=== PATIENT | male | born 1960 | race American Indian/Alaskan Native ===

== ENCOUNTER 2021-09-20 15:49 | Inpatient (IN) | payer OTHER ==
--- NOTE | 2021-09-20 16:57 | XRay Report ---
CHEST 1 VIEW INDICATION: Dyspnea. COMPARISON: None FINDINGS: SUPPORT DEVICES: None. HEART: Within normal limits. LUNGS/PLEURA: No acute air space or interstitial disease. ADDITIONAL FINDINGS: None. IMPRESSION: 1. No acute findings. Signer Name: Celso Mendenhall MD Signed: 09/20/2021 4:52 PM Workstation Name: [id number]
[2021-09-20 17:03] LABS: Hematocrit 47.8 % (35.5-45.6); Hemoglobin 16.1 gm/dl (11.8-15.2); Mean Corpuscular HGB Conc 34 % (32-34); Mean Corpuscular Volume 78 fl (84-94); Red Blood Count 6.09 M/mm3 (3.65-5.03); Red Cell Distribution Width 14.8 % (13.2-15.2)
[2021-09-20 17:10] LABS: Platelet Count 10 K/mm3 (140-440)
[2021-09-20 17:21] LABS: Alanine Aminotransferase 25 units/L (7-56); BUN/Creatinine Ratio 15; Blood Urea Nitrogen 20 mg/dL (9-20); Calcium 9.5 mg/dL (8.4-10.2); Hemolysis Index 12
[2021-09-20 18:13] LABS: Anisocytosis RARE; Basophils % (Manual) 0 % (0.0-1.8); Eosinophils % (Manual) 0 % (0.0-4.3); Total Cells Counted 100
[2021-09-20 18:14] LABS: Spherocytes Rare
--- NOTE | 2021-09-20 19:58 | Cat Scan Report ---
CTA CHEST WITH CONTRAST INDICATION / CLINICAL INFORMATION: Tachycardia elevated D-dimer. TECHNIQUE: Axial CT images were obtained through the chest after injection of IV contrast. 3 plane NJ P and/or 3D reconstructions were produced. All CT scans at this location are performed using CT dose reduction for ALARA by means of automated exposure control. COMPARISON: None available. FINDINGS: PULMONARY ARTERIES: No pulmonary emboli. THORACIC AORTA: No significant abnormality. HEART: No significant abnormality. CORONARY ARTERY CALCIFICATION: None. MEDIASTINUM / KIMBER: Diffuse goiter. 3.3 cm nodule upper pole right thyroid is partially imaged. PLEURA: No pleural effusion. No pneumothorax. LUNGS: No acute air space or interstitial disease. ADDITIONAL FINDINGS: None. UPPER ABDOMEN: 1.7 cm left adrenal nodule. SKELETAL STRUCTURES: No significant osseous abnormality. IMPRESSION: 1. No CT evidence for pulmonary embolism. 2. Negative for pneumonia. 3. Diffuse goiter with 3.2 cm right thyroid nodule. Incidental thyroid nodule in the right lobe measuring 3.2 cm in a patient equal to or over age 35. Re commendation based on ACR guidelines: Diagnostic thyroid ultrasound. Signer Name: Matthias Nash MD Signed: 09/20/2021 7:53 PM Workstation Name: [id number]
[2021-09-20] MEDS ORDERED: SODIUM CHLORIDE 0.9% 1000 ML 1,000 ML IV ONE (20:30)
--- NOTE | 2021-09-20 20:32 | Emergency Department Report ---
ED General Adult HPI - General Chief complaint: Dyspnea/Respdistress Stated complaint: TACHYCARDIA,ESME Time Seen by Provider: 09/20/21 16:27 Source: patient, EMS Mode of arrival: Stretcher Limitations: No Limitations - History of Present Illness Initial comments: Patient is a 62-year-old male presenting to ED with complaint of chills and tachycardia. Patient states that he was on his way home from a prostate biopsy that was done today. He denies any shortness of breath or cough. Reports continued hematuria since the procedure. Patient febrile and tachycardic in triage. Severity scale (0 -10): 0 ED Review of Systems ROS: Stated complaint: TACHYCARDIA,ESME Other details as noted in HPI Comment: All other systems reviewed and negative Constitutional: chills, fever Respiratory: denies: cough, shortness of breath, wheezing Cardiovascular: palpitations. denies: chest pain Endocrine: no symptoms reported Gastrointestinal: denies: abdominal pain, nausea, diarrhea Genitourinary: denies: urgency, dysuria Musculoskeletal: denies: back pain, joint swelling, arthralgia Skin: denies: rash, lesions Neurological: denies: headache, weakness, paresthesias Psychiatric: denies: anxiety, depression ED Past Medical Hx - Past Medical History Previous Medical History?: Yes Hx of Cancer: Yes - Social History Smoking Status: Never Smoker Substance Use Type: None ED Physical Exam - General Limitations: No Limitations General appearance: alert, in no apparent distress - Head Head exam: Present: atraumatic, normocephalic - Respiratory Respiratory exam: Present: normal lung sounds bilaterally. Absent: respiratory distress - Cardiovascular Cardiovascular Exam: Present: regular rate, tachycardia, normal heart sounds - GI/Abdominal GI/Abdominal exam: Present: soft. Absent: distended, tenderness - Rectal Rectal exam: Present: deferred - Neurological Exam Neurological exam: Present: alert, oriented X3 - Psychiatric Psychiatric exam: Present: normal affect, normal mood - Skin Skin exam: Present: warm, dry, intact, normal color ED Course Vital Signs 09/20/21 09/20/21 09/20/21 16:02 16:29 16:30 Temperature 100.3 F H Pulse Rate 135 H 123 H 126 H Respiratory 18 35 H 29 H Rate Blood Pressure Blood Pressure 133/77 [Left] O2 Sat by Pulse 100 96 96 Oximetry 09/20/21 09/20/21 09/20/21 16:46 16:56 17:00 Temperature Pulse Rate 113 H 114 H Respiratory 22 16 Rate Blood Pressure 105/61 Blood Pressure [Left] O2 Sat by Pulse 97 99 96 Oximetry 09/20/21 09/20/21 09/20/21 17:16 17:30 17:46 Temperature Pulse Rate 108 H 111 H 135 H Respiratory 14 34 H 27 H Rate Blood Pressure 105/61 105/61 105/61 Blood Pressure [Left] O2 Sat by Pulse 96 96 96 Oximetry 09/20/21 09/20/21 09/20/21 18:00 18:16 18:30 Temperature Pulse Rate 119 H 107 H 104 H Respiratory 30 H 24 19 Rate Blood Pressure 105/61 105/61 113/62 Blood Pressure [Left] O2 Sat by Pulse 95 96 Oximetry 09/20/21 09/20/21 18:46 19:00 Temperature Pulse Rate 99 H 101 H Respiratory 16 21 Rate Blood Pressure 113/62 113/71 Blood Pressure [Left] O2 Sat by Pulse 97 97 Oximetry ED Medical Decision Making - Lab Data Result diagrams: 09/20/21 16:39 09/20/21 16:39 - Medical Decision Making Patient presenting to ED with complaint of chills and tachycardia status post prostate biopsy earlier today. On arrival he is tachycardic in the 130s with low-grade fever. Labs obtained and reveal leukocytosis of 18.6. Thrombocytopenia platelets of 10,000. Lactic acid is within normal range. D- dimer 1111. CTA negative for PE. Currently unable to obtain urine sample. Will avoid straight cath due to recent procedure. Given timeline acute prostatitis is unlikely however will start on Zosyn. COVID swab pending. Will admit to hospitalist. Critical care attestation.: If time is entered above; I have spent that time in minutes in the direct care of this critically ill patient, excluding procedure time. ED Disposition Clinical Impression: SIRS (systemic inflammatory response syndrome), Postoperative fever, Thrombocytopenia Disposition: ADMITTED INPATIENT Is pt being admited?: Yes Condition: Stable
[2021-09-20] MEDS ORDERED: ONDANSETRON 4 MG/2 ML INJ IV PRN (21:27)
[2021-09-20] MEDS ORDERED: MORPHINE 4 MG/1 ML INJ IV PRN (21:27)
[2021-09-20] MEDS ORDERED: ACETAMINOPHEN 325 MG TAB PO PRN (21:27)
[2021-09-20] MEDS ORDERED: ALBUTEROL 2.5 MG/3 ML NEBU IH PRN (21:27)
[2021-09-20] MEDS ORDERED: MORPHINE 2 MG/1 ML INJ IV PRN (21:27)
[2021-09-20] MEDS ORDERED: ACETAMINOPHEN 325 MG/10.15 ML ORAL LIQD UNIT DOSE PO ONE (21:30)
--- NOTE | 2021-09-20 21:34 | History and Physical Report ---
History of Present Illness Date of examination: 09/20/21 Date of admission: 09/20/21 Chief complaint: Chills Tachycardia History of present illness: 62-year-old male with past medical history of hypertension, cancer was brought to the emergency room because of chills and tachycardia. Patient states that he was on his way home from a prostate biopsy that was done today. He denies any shortness of breath or cough. Reports continued hematuria since the procedure. Patient febrile and tachycardic in triage. On arrival he is tachycardic in the 130s with low-grade fever. Labs obtained and reveal leukocytosis of 18.6. Thrombocytopenia platelets of 10,000. Lactic acid is within normal range. D-dimer 1111. CTA negative for PE. Currently unable to obtain urine sample. Will avoid straight cath due to recent procedure. Given timeline acute prostatitis is unlikely however will start on Zosyn. COVID swab pending. Past History Past Medical History: hypertension, other (Cancer) Past Surgical History: Other (Prostate biopsy) Social history: no significant social history Family history: hypertension Medications and Allergies Allergies Allergy/AdvReac Type Severity Reaction Status Date / Time No Known Allergies Allergy Unverified 09/20/21 21:22 Active Meds: Active Medications Acetaminophen (Acetaminophen 325 Mg/10.15 Ml Oral Liqd Unit Dose) 650 mg PO ONCE ONE Stop: 09/20/21 20:31 Acetaminophen (Acetaminophen 325 Mg Tab) 650 mg PO Q4H PRN PRN Reason: Pain MILD(1-3)/Fever >100.5/TALBOT Albuterol (Albuterol 2.5 Mg/3 Ml Nebu) 2.5 mg IH Q3HRT PRN PRN Reason: Shortness Of Breath Albuterol/Ipratropium (Ipratropium/Albuterol Sulfate 3 Ml Ampul.Neb) 1 ampul IH Q6HRT CATHLEEN Famotidine (Famotidine 20 Mg Tab) 20 mg PO BID CATHLEEN Sodium Chloride (Nacl 0.9% 1000 Ml) 1,000 mls @ 999 mls/hr IV BOLUS ONE Stop: 09/20/21 21:30 Piperacillin Sod/Tazobactam Sod (Zosyn/Ns 3.375gm/50ml) 3.375 gm in 50 mls @ 100 mls/hr IV ONCE ONE; Protocol Stop: 09/20/21 20:59 Sodium Chloride (Nacl 0.9% 1000 Ml) 1,000 mls @ 100 mls/hr IV DIRECT CATHLEEN Piperacillin Sod/Tazobactam Sod (Zosyn/Ns 4.5gm/100ml) 4.5 gm in 100 mls @ 200 mls/hr IV Q8H CATHLEEN; Protocol Morphine Sulfate (Morphine 2 Mg/1 Ml Inj) 2 mg IV Q4H PRN PRN Reason: Pain, Moderate (4-6) Morphine Sulfate (Morphine 4 Mg/1 Ml Inj) 4 mg IV Q4H PRN PRN Reason: Pain , Severe (7-10) Ondansetron HCl (Ondansetron 4 Mg/2 Ml Inj) 4 mg IV Q8H PRN PRN Reason: Nausea And Vomiting Sodium Chloride (Sodium Chloride 0.9% 10 Ml Flush Syringe) 10 ml IV BID CATHLEEN Sodium Chloride (Sodium Chloride 0.9% 10 Ml Flush Syringe) 10 ml IV PRN PRN PRN Reason: LINE FLUSH Review of Systems All systems: negative Constitutional: fever, chills, other (Tachycardia) Exam - Constitutional Vitals: Temp Pulse Resp BP Pulse Ox 100.3 F H 101 H 21 113/71 97 09/20/21 16:02 09/20/21 19:00 09/20/21 19:00 09/20/21 19:00 09/20/21 19:00 General appearance: Present: no acute distress, well-nourished - EENT Eyes: Present: PERRL ENT: hearing intact, clear oral mucosa - Neck Neck: Present: supple, normal ROM - Respiratory Respiratory effort: normal Respiratory: bilateral: CTA - Cardiovascular Heart Sounds: Present: S1 & S2. Absent: rub, click - Extremities Extremities: pulses symmetrical, No edema Peripheral Pulses: within normal limits - Abdominal General gastrointestinal: Present: soft, non-tender, non-distended, normal bowel sounds Male genitourinary: Present: normal - Integumentary Integumentary: Present: clear, warm, dry - Musculoskeletal Musculoskeletal: gait normal, strength equal bilaterally - Psychiatric Psychiatric: appropriate mood/affect, intact judgment & insight - Neurologic Neurologic: CNII-XII intact, moves all extremities HEART Score - HEART Score Troponin: Troponin T 0.026 ng/mL (0.00-0.029) 09/20/21 16:39 Results - Labs CBC & Chem 7: 09/20/21 16:39 09/20/21 16:39 Labs: Laboratory Last Values WBC 18.7 K/mm3 (4.5-11.0) H 09/20/21 16:39 RBC 6.09 M/mm3 (3.65-5.03) H 09/20/21 16:39 Hgb 16.1 gm/dl (11.8-15.2) H 09/20/21 16:39 Hct 47.8 % (35.5-45.6) H 09/20/21 16:39 MCV 78 fl (84-94) L 09/20/21 16:39 MCH 26 pg (28-32) L 09/20/21 16:39 MCHC 34 % (32-34) 09/20/21 16:39 RDW 14.8 % (13.2-15.2) 09/20/21 16:39 Plt Count 10 K/mm3 (140-440) L* 09/20/21 16:39 Add Manual Diff Complete 09/20/21 16:39 Total Counted 100 09/20/21 16:39 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 09/20/21 16:39 Seg Neuts % (Manual) 91.0 % (40.0-70.0) H 09/20/21 16:39 Band Neutrophils % 0 % 09/20/21 16:39 Lymphocytes % (Manual) 3.0 % (13.4-35.0) L 09/20/21 16:39 Reactive Lymphs % (Man) 0 % 09/20/21 16:39 Monocytes % (Manual) 6.0 % (0.0-7.3) 09/20/21 16:39 Eosinophils % (Manual) 0 % (0.0-4.3) 09/20/21 16:39 Basophils % (Manual) 0 % (0.0-1.8) 09/20/21 16:39 Metamyelocytes % 0 % 09/20/21 16:39 Myelocytes % 0 % 09/20/21 16:39 Promyelocytes % 0 % 09/20/21 16:39 Blast Cells % 0 % 09/20/21 16:39 Nucleated RBC % Not Reportable 09/20/21 16:39 Seg Neutrophils # Man 17.0 K/mm3 (1.8-7.7) H 09/20/21 16:39 Band Neutrophils # 0.0 K/mm3 09/20/21 16:39 Lymphocytes # (Manual) 0.6 K/mm3 (1.2-5.4) L 09/20/21 16:39 Abs React Lymphs (Man) 0.0 K/mm3 09/20/21 16:39 Monocytes # (Manual) 1.1 K/mm3 (0.0-0.8) H 09/20/21 16:39 Eosinophils # (Manual) 0.0 K/mm3 (0.0-0.4) 09/20/21 16:39 Basophils # (Manual) 0.0 K/mm3 (0.0-0.1) 09/20/21 16:39 Metamyelocytes # 0.0 K/mm3 09/20/21 16:39 Myelocytes # 0.0 K/mm3 09/20/21 16:39 Promyelocytes # 0.0 K/mm3 09/20/21 16:39 Blast Cells # 0.0 K/mm3 09/20/21 16:39 WBC Morphology Not Reportable 09/20/21 16:39 Hypersegmented Neuts Not Reportable 09/20/21 16:39 Hyposegmented Neuts Not Reportable 09/20/21 16:39 Hypogranular Neuts Not Reportable 09/20/21 16:39 Smudge Cells Not Reportable 09/20/21 16:39 Toxic Granulation Not Reportable 09/20/21 16:39 Toxic Vacuolation Not Reportable 09/20/21 16:39 Dohle Bodies Not Reportable 09/20/21 16:39 Pelger-Huet Anomaly Not Reportable 09/20/21 16:39 Ira Rods Not Reportable 09/20/21 16:39 Platelet Estimate Not Reportable 09/20/21 16:39 Clumped Platelets Not Reportable 09/20/21 16:39 Plt Clumps, EDTA Not Reportable 09/20/21 16:39 Large Platelets Not Reportable 09/20/21 16:39 Giant Platelets Not Reportable 09/20/21 16:39 Platelet Satelliting Not Reportable 09/20/21 16:39 Plt Morphology Comment Not Reportable 09/20/21 16:39 RBC Morphology Not Reportable 09/20/21 16:39 Dimorphic RBCs Not Reportable 09/20/21 16:39 Polychromasia Not Reportable 09/20/21 16:39 Hypochromasia Not Reportable 09/20/21 16:39 Poikilocytosis Not Reportable 09/20/21 16:39 Anisocytosis Rare 09/20/21 16:39 Microcytosis Rare 09/20/21 16:39 Macrocytosis Not Reportable 09/20/21 16:39 Spherocytes Rare 09/20/21 16:39 Pappenheimer Bodies Not Reportable 09/20/21 16:39 Sickle Cells Not Reportable 09/20/21 16:39 Target Cells Not Reportable 09/20/21 16:39 Tear Drop Cells Not Reportable 09/20/21 16:39 Ovalocytes Not Reportable 09/20/21 16:39 Helmet Cells Not Reportable 09/20/21 16:39 [place] Bodies Not Reportable 09/20/21 16:39 [place] Rings Not Reportable 09/20/21 16:39 Ab Cells Not Reportable 09/20/21 16:39 Bite Cells Not Reportable 09/20/21 16:39 Crenated Cell Not Reportable 09/20/21 16:39 Elliptocytes Not Reportable 09/20/21 16:39 Acanthocytes (Spur) Not Reportable 09/20/21 16:39 Rouleaux Not Reportable 09/20/21 16:39 Hemoglobin C Crystals Not Reportable 09/20/21 16:39 Schistocytes Not Reportable 09/20/21 16:39 Malaria parasites Not Reportable 09/20/21 16:39 Bboo Bodies Not Reportable 09/20/21 16:39 Hem Pathologist Commnt No 09/20/21 16:39 D-Dimer 1111.70 ng/mlDDU (0-234) H 09/20/21 16:39 Sodium 141 mmol/L (137-145) 09/20/21 16:39 Potassium 3.2 mmol/L (3.6-5.0) L 09/20/21 16:39 Chloride 103.8 mmol/L (98-107) 09/20/21 16:39 Carbon Dioxide 21 mmol/L (22-30) L 09/20/21 16:39 Anion Gap 19 mmol/L 09/20/21 16:39 BUN 20 mg/dL (9-20) 09/20/21 16:39 Creatinine 1.3 mg/dL (0.8-1.3) 09/20/21 16:39 Estimated GFR > 60 ml/min 09/20/21 16:39 BUN/Creatinine Ratio 15 % 09/20/21 16:39 Glucose 148 mg/dL (75-100) H 09/20/21 16:39 Lactic Acid 1.80 mmol/L (0.7-2.0) 09/20/21 16:39 Calcium 9.5 mg/dL (8.4-10.2) 09/20/21 16:39 Total Bilirubin 0.70 mg/dL (0.1-1.2) 09/20/21 16:39 AST 38 units/L (5-40) 09/20/21 16:39 ALT 25 units/L (7-56) 09/20/21 16:39 Alkaline Phosphatase 100 units/L (35-129) 09/20/21 16:39 Troponin T 0.026 ng/mL (0.00-0.029) 09/20/21 16:39 Total Protein 7.0 g/dL (6.3-8.2) 09/20/21 16:39 Albumin 4.0 g/dL (3.9-5) 09/20/21 16:39 Albumin/Globulin Ratio 1.3 % 09/20/21 16:39 - Imaging and Cardiology CT scan - chest: report reviewed Assessment and Plan VTE prophylaxis?: Mechanical Plan of care discussed with patient/family: Yes - Patient Problems (1) Sepsis Status: Acute Plan to address problem: Admit the patient to the medical telemetry. Cardiac diet. Oxygen via nasal cannula thermal molder pulmonate. Normal saline at the rate of 100 cc/h. Zosyn 4.5 g IV every 8 hours. We do the blood culture urine culture. We will repeat the lactic acid. Recheck CBC BMP in the morning (2) Hypertension Status: Acute Plan to address problem: Hydralazine 10 mg IV every 6 hours as needed. We continue the home medication (3) Postoperative fever Status: Acute Plan to address problem: Tylenol 650 mg p.o. every 6 hours as needed. Zosyn 4.8 g IV every 8 hours as needed. Blood culture urine culture (4) Thrombocytopenia Status: Acute Plan to address problem: We are transfusing 1 unit of platelet pheresis. Recheck CBC in the morning. If needed please consult hematology in the morning (5) DVT prophylaxis Status: Acute Plan to address problem: SCD for DVT prophylaxis due to thrombocytopenia. Pepcid 20 mg p.o. twice daily for GI prophylaxis. Patient is a full code
[2021-09-20] MEDS ORDERED: SODIUM CHLORIDE 0.9% 500 ML 500 ML IV ONE (21:36)
[2021-09-20] MEDS ORDERED: hydrALAZINE 20 MG/1 ML INJ IV PRN (21:37)
[2021-09-20] MEDS: PIPERACIL/TAZOBACTA 4.5/NS 100 4.5 GM/100 ML VIAL IV SCH (22:03)
[2021-09-20] MEDS: FAMOTIDINE 20 MG TAB PO SCH (22:04)
[2021-09-20] MEDS ORDERED: PIPERACILLIN/TAZOBACTAM 3.375 3.375 GM/50 ML BAG IV ONE (22:30)
[2021-09-21 02:42] LABS: Bilirubin,Urine NEG (Negative); Blood,Urine LG (Negative); Color,Urine Yellow (Yellow); Urobilinogen,Urine < 2.0 mg/dL (<2.0)
[2021-09-21 02:46] LABS: Bacteria,Urine 1+ /HPF (Negative)
[2021-09-21] MEDS ORDERED: SODIUM CHLORIDE 0.9% 500 ML 500 ML ONE (03:28)
[2021-09-21] MEDS: IPRATROPIUM/ALBUTEROL SULFATE 3 ML AMPUL.NEB IH SCH ×3 (04:36→14:00)
[2021-09-21] MEDS: SODIUM CHLORIDE 0.9% 1000 ML 1,000 ML IV SCH (06:01)
[2021-09-21] MEDS: PIPERACIL/TAZOBACTA 4.5/NS 100 4.5 GM/100 ML VIAL IV SCH ×4 (06:02→22:15)
[2021-09-21 07:42] LABS: Hematocrit 44.3 % (35.5-45.6); Hemoglobin 14.4 gm/dl (11.8-15.2); Mean Corpuscular HGB Conc 33 % (32-34); Mean Corpuscular Volume 79 fl (84-94); Red Blood Count 5.58 M/mm3 (3.65-5.03); Red Cell Distribution Width 14.9 % (13.2-15.2)
[2021-09-21 07:46] LABS: Platelet Count 75 K/mm3 (140-440)
[2021-09-21 08:06] LABS: BUN/Creatinine Ratio 12; Blood Urea Nitrogen 15 mg/dL (9-20); Hemolysis Index 4
--- NOTE | 2021-09-21 08:23 | Progress Note ---
Assessment and Plan Assessment and plan: History of present illness: 62-year-old male with past medical history of hypertension, cancer was brought to the emergency room because of chills and tachycardia. Patient states that he was on his way home from a prostate biopsy that was done today. He denies any shortness of breath or cough. Reports continued hematuria since the procedure. Patient febrile and tachycardic in triage. On arrival he is tachycardic in the 130s with low-grade fever. Labs obtained and reveal leukocytosis of 18.6. Thrombocytopenia platelets of 10,000. Lactic acid is within normal range. D-dimer 1111. CTA negative for PE. Currently unable to obtain urine sample. Will avoid straight cath due to recent procedure. Given timeline acute prostatitis is unlikely however will start on Zosyn. COVID swab pending. Hospital Course: 09/21: Improvement in plt ct. No reports of fever/chills or documented fever on vitals. Will continue IV Zosyn for empiric therapy. Continues to have hematuria and urine. s/p 1 unit platelets. Recheck CBC in AM. Plan for early d/c tomorrow. If platelet worse will consult hematology. Assessment and Plan: (1) Sepsis POA Status: Acute Plan to address problem: Admit the patient to the medical telemetry. Cardiac diet. Normal saline at the rate of 100 cc/h. Zosyn 4.5 g IV every 8 hours. We do the blood culture urine culture. We will repeat the lactic acid. Recheck CBC BMP in the morning Source likely from prostate biopsy Coverage for gram-negative rods with Zosyn (2) Hypertension Status: Acute Plan to address problem: Hydralazine 10 mg IV every 6 hours as needed. We continue the home medication (3) Postoperative fever Status: Acute Plan to address problem: Tylenol 650 mg p.o. every 6 hours as needed. Zosyn 4.8 g IV every 8 hours as needed. Blood culture urine culture (4) Thrombocytopenia Status: Acute Plan to address problem: Secondary to sepsis We are transfusing 1 unit of platelet pheresis. Recheck CBC in the morning. If needed please consult hematology in the morning (5) DVT prophylaxis Status: Acute Plan to address problem: SCD for DVT prophylaxis due to thrombocytopenia. Pepcid 20 mg p.o. twice daily for GI prophylaxis. Patient is a full code #Advance care planning Disease education conducted, care plan discussed, diagnoses discussed, prognosis discussed, patient is full code, patient acknowledges understanding and agree with care plan, +30 minutes. History Interval history: No complaints this AM on encounter. Fevers and chills have improved. He continues to have some hematuria but urine has begun to clear up. Hospitalist Physical - Physical exam Narrative exam: Physical Exam: VITAL SIGNS: Reviewed. GENERAL: The patient appears normally developed, Vital signs as documented. HEAD: No signs of head trauma. EYES: Pupils are equal. Extraocular motions intact. EARS: Hearing grossly intact. MOUTH: Oropharynx is normal. NECK: No adenopathy, no JVD. CHEST: Chest with clear breath sounds bilaterally. No wheezes, rales, or rhonchi. CARDIAC: Regular rate and rhythm. S1 and S2, without murmurs, gallops, or rubs. VASCULAR: No Edema. Peripheral pulses normal and equal in all extremities. ABDOMEN: Soft, non tender and non distended. No rebound or guarding, and no masses palpated. Bowel Sounds normal. MUSCULOSKELETAL: Good range of motion of all major joints. Extremities without clubbing, cyanosis or edema. NEUROLOGIC EXAM: Alert and oriented x 4. no focal sensory or strength deficits. PSYCHIATRIC: Mood normal. SKIN: detail exam as documented in skin assessment - Constitutional Vitals: Temp Pulse Resp BP Pulse Ox 99 F 87 18 120/82 95 09/21/21 06:17 09/21/21 06:17 09/21/21 06:17 09/21/21 06:17 09/21/21 08:21 General appearance: Present: no acute distress, well-nourished HEART Score - HEART Score Troponin: Troponin T 0.026 ng/mL (0.00-0.029) 09/20/21 16:39 Results - Labs CBC & Chem 7: 09/21/21 06:52 09/21/21 06:52 Labs: Laboratory Last Values WBC 11.2 K/mm3 (4.5-11.0) H 09/21/21 06:52 RBC 5.58 M/mm3 (3.65-5.03) H 09/21/21 06:52 Hgb 14.4 gm/dl (11.8-15.2) 09/21/21 06:52 Hct 44.3 % (35.5-45.6) 09/21/21 06:52 MCV 79 fl (84-94) L 09/21/21 06:52 MCH 26 pg (28-32) L 09/21/21 06:52 MCHC 33 % (32-34) 09/21/21 06:52 RDW 14.9 % (13.2-15.2) 09/21/21 06:52 Plt Count 75 K/mm3 (140-440) L D 09/21/21 06:52 Add Manual Diff Complete 09/20/21 16:39 Total Counted 100 09/20/21 16:39 Seg Neutrophils % Systems Integration Engineer 09/21/21 06:52 Seg Neuts % (Manual) 91.0 % (40.0-70.0) H 09/20/21 16:39 Band Neutrophils % 0 % 09/20/21 16:39 Lymphocytes % (Manual) 3.0 % (13.4-35.0) L 09/20/21 16:39 Reactive Lymphs % (Man) 0 % 09/20/21 16:39 Monocytes % (Manual) 6.0 % (0.0-7.3) 09/20/21 16:39 Eosinophils % (Manual) 0 % (0.0-4.3) 09/20/21 16:39 Basophils % (Manual) 0 % (0.0-1.8) 09/20/21 16:39 Metamyelocytes % 0 % 09/20/21 16:39 Myelocytes % 0 % 09/20/21 16:39 Promyelocytes % 0 % 09/20/21 16:39 Blast Cells % 0 % 09/20/21 16:39 Nucleated RBC % Not Reportable 09/20/21 16:39 Seg Neutrophils # Man 17.0 K/mm3 (1.8-7.7) H 09/20/21 16:39 Band Neutrophils # 0.0 K/mm3 09/20/21 16:39 Lymphocytes # (Manual) 0.6 K/mm3 (1.2-5.4) L 09/20/21 16:39 Abs React Lymphs (Man) 0.0 K/mm3 09/20/21 16:39 Monocytes # (Manual) 1.1 K/mm3 (0.0-0.8) H 09/20/21 16:39 Eosinophils # (Manual) 0.0 K/mm3 (0.0-0.4) 09/20/21 16:39 Basophils # (Manual) 0.0 K/mm3 (0.0-0.1) 09/20/21 16:39 Metamyelocytes # 0.0 K/mm3 09/20/21 16:39 Myelocytes # 0.0 K/mm3 09/20/21 16:39 Promyelocytes # 0.0 K/mm3 09/20/21 16:39 Blast Cells # 0.0 K/mm3 09/20/21 16:39 WBC Morphology Not Reportable 09/20/21 16:39 Hypersegmented Neuts Not Reportable 09/20/21 16:39 Hyposegmented Neuts Not Reportable 09/20/21 16:39 Hypogranular Neuts Not Reportable 09/20/21 16:39 Smudge Cells Not Reportable 09/20/21 16:39 Toxic Granulation Not Reportable 09/20/21 16:39 Toxic Vacuolation Not Reportable 09/20/21 16:39 Dohle Bodies Not Reportable 09/20/21 16:39 Pelger-Huet Anomaly Not Reportable 09/20/21 16:39 Ira Rods Not Reportable 09/20/21 16:39 Platelet Estimate Not Reportable 09/20/21 16:39 Clumped Platelets Not Reportable 09/20/21 16:39 Plt Clumps, EDTA Not Reportable 09/20/21 16:39 Large Platelets Not Reportable 09/20/21 16:39 Giant Platelets Not Reportable 09/20/21 16:39 Platelet Satelliting Not Reportable 09/20/21 16:39 Plt Morphology Comment Not Reportable 09/20/21 16:39 RBC Morphology Not Reportable 09/20/21 16:39 Dimorphic RBCs Not Reportable 09/20/21 16:39 Polychromasia Not Reportable 09/20/21 16:39 Hypochromasia Not Reportable 09/20/21 16:39 Poikilocytosis Not Reportable 09/20/21 16:39 Anisocytosis Rare 09/20/21 16:39 Microcytosis Rare 09/20/21 16:39 Macrocytosis Not Reportable 09/20/21 16:39 Spherocytes Rare 09/20/21 16:39 Pappenheimer Bodies Not Reportable 09/20/21 16:39 Sickle Cells Not Reportable 09/20/21 16:39 Target Cells Not Reportable 09/20/21 16:39 Tear Drop Cells Not Reportable 09/20/21 16:39 Ovalocytes Not Reportable 09/20/21 16:39 Helmet Cells Not Reportable 09/20/21 16:39 [place] Bodies Not Reportable 09/20/21 16:39 [place] Rings Not Reportable 09/20/21 16:39 Ab Cells Not Reportable 09/20/21 16:39 Bite Cells Not Reportable 09/20/21 16:39 Crenated Cell Not Reportable 09/20/21 16:39 Elliptocytes Not Reportable 09/20/21 16:39 Acanthocytes (Spur) Not Reportable 09/20/21 16:39 Rouleaux Not Reportable 09/20/21 16:39 Hemoglobin C Crystals Not Reportable 09/20/21 16:39 Schistocytes Not Reportable 09/20/21 16:39 Malaria parasites Not Reportable 09/20/21 16:39 Bobo Bodies Not Reportable 09/20/21 16:39 Hem Pathologist Commnt No 09/20/21 16:39 D-Dimer 1111.70 ng/mlDDU (0-234) H 09/20/21 16:39 Sodium 140 mmol/L (137-145) 09/21/21 06:52 Potassium 3.0 mmol/L (3.6-5.0) L 09/21/21 06:52 Chloride 101.8 mmol/L (98-107) 09/21/21 06:52 Carbon Dioxide 22 mmol/L (22-30) 09/21/21 06:52 Anion Gap 19 mmol/L 09/21/21 06:52 BUN 15 mg/dL (9-20) 09/21/21 06:52 Creatinine 1.3 mg/dL (0.8-1.3) 09/21/21 06:52 Estimated GFR > 60 ml/min 09/21/21 06:52 BUN/Creatinine Ratio 12 % 09/21/21 06:52 Glucose 121 mg/dL (75-100) H 09/21/21 06:52 Lactic Acid 1.80 mmol/L (0.7-2.0) 09/20/21 16:39 Calcium 9.0 mg/dL (8.4-10.2) 09/21/21 06:52 Total Bilirubin 0.70 mg/dL (0.1-1.2) 09/20/21 16:39 AST 38 units/L (5-40) 09/20/21 16:39 ALT 25 units/L (7-56) 09/20/21 16:39 Alkaline Phosphatase 100 units/L (35-129) 09/20/21 16:39 Troponin T 0.026 ng/mL (0.00-0.029) 09/20/21 16:39 Total Protein 7.0 g/dL (6.3-8.2) 09/20/21 16:39 Albumin 4.0 g/dL (3.9-5) 09/20/21 16:39 Albumin/Globulin Ratio 1.3 % 09/20/21 16:39 Urine Color Yellow (Yellow) 09/21/21 02:25 Urine Turbidity Clear (Clear) 09/21/21 02:25 Urine pH 6.0 (5.0-7.0) 09/21/21 02:25 Ur Specific [place] 1.029 (1.003-1.030) 09/21/21 02:25 Urine Protein 100 mg/dl mg/dL (Negative) 09/21/21 02:25 Urine Glucose (UA) Neg mg/dL (Negative) 09/21/21 02:25 Urine Ketones 20 mg/dL (Negative) 09/21/21 02:25 Urine Blood Lg (Negative) 09/21/21 02:25 Urine Nitrite Neg (Negative) 09/21/21 02:25 Urine Bilirubin Neg (Negative) 09/21/21 02:25 Urine Urobilinogen < 2.0 mg/dL (<2.0) 09/21/21 02:25 Ur Leukocyte Esterase Lg (Negative) 09/21/21 02:25 Urine WBC (Auto) 54.0 /HPF (0.0-6.0) H 09/21/21 02:25 Urine RBC (Auto) 33.0 /HPF (0.0-6.0) 09/21/21 02:25 Urine Bacteria (Auto) 1+ /HPF (Negative) 09/21/21 02:25 Urine Yeast (Budding) 2+ /HPF 09/21/21 02:25 Blood Type B POSITIVE 09/20/21 22:55 Microbiology: Microbiology 09/20/21 20:50 Peripheral/Venous Blood Culture - Preliminary Culture in Progress 09/20/21 20:50 Peripheral/Venous Blood Culture - Preliminary Culture in Progress Mojica/IV: Voiding Method Toilet Active Medications - Current Medications Current Medications: Generic Name Dose Route Start Last Admin Trade Name Freq PRN Reason Stop Dose Admin Acetaminophen 650 mg 09/20/21 21:27 09/21/21 03:51 Acetaminophen 325 Mg Tab PO 650 mg Q4H PRN Administration Pain MILD(1-3)/Fever >100.5/TALBOT Albuterol 2.5 mg 09/20/21 21:27 Albuterol 2.5 Mg/3 Ml Nebu IH Q3HRT PRN Shortness Of Breath Albuterol/Ipratropium 1 ampul 09/21/21 02:00 09/21/21 08:13 Ipratropium/Albuterol Sulfate 3 Ml Ampul.Neb IH 1 ampul Q6HRT CATHLEEN Administration Famotidine 20 mg 09/20/21 22:00 09/20/21 22:04 Famotidine 20 Mg Tab PO 20 mg BID CATHLEEN Administration Hydralazine HCl 10 mg 09/20/21 21:37 Hydralazine 20 Mg/1 Ml Inj IV Q6H PRN Blood Pressure Sodium Chloride 1,000 mls @ 100 mls/hr 09/20/21 21:30 09/21/21 06:01 Nacl 0.9% 1000 Ml IV 100 mls/hr DIRECT CATHLEEN Administration Piperacillin Sod/Tazobactam Sod 4.5 gm in 100 mls @ 200 mls/hr 09/20/21 06:00 09/21/21 06:03 Zosyn/Ns 4.5gm/100ml IV 200 mls/hr Q8H CATHLEEN Administration Protocol Morphine Sulfate 2 mg 09/20/21 21:27 Morphine 2 Mg/1 Ml Inj IV Q4H PRN Pain, Moderate (4-6) Morphine Sulfate 4 mg 09/20/21 21:27 Morphine 4 Mg/1 Ml Inj IV Q4H PRN Pain , Severe (7-10) Ondansetron HCl 4 mg 09/20/21 21:27 Ondansetron 4 Mg/2 Ml Inj IV Q8H PRN Nausea And Vomiting Sodium Chloride 10 ml 09/20/21 22:00 09/20/21 22:05 Sodium Chloride 0.9% 10 Ml Flush Syringe IV 10 ml BID CATHLEEN Administration Sodium Chloride 10 ml 09/20/21 21:27 Sodium Chloride 0.9% 10 Ml Flush Syringe IV PRN PRN LINE FLUSH
[2021-09-21 08:42] LABS: Band Neutrophils # (Manual) 0.1 K/mm3; Basophils % (Manual) 0 % (0.0-1.8); Eosinophils % (Manual) 0 % (0.0-4.3); Large Platelets Few; Platelet Estimate Consistent w Auto; RBC Morphology Normal; Total Cells Counted 100
[2021-09-21] MEDS: FAMOTIDINE 20 MG TAB PO SCH ×2 (09:27→22:15)
--- NOTE | 2021-09-21 12:16 | Electrocardiograph Report ---
[facility] Test Date: 2021-09-20 Test Time: 16:33:51 Pat Name: JAC MON Department: Room: A353 1 Gender: M Database Development Project Manager: SEBASTIAN : 1960 Requested By: MARCOS MCKINNEY Order Number: [id number] Reading MD: Gerson Pacheco Measurements Intervals [place] Rate: 120 P: 38 TX: 149 QRS: -22 QRSD: 120 T: 7 QT: 341 QTc: 482 Interpretive Statements Sinus tachycardia Probable left ventricular hypertrophy No previous ECG available for comparison Electronically Signed On 09-21-2021 12:15:53 EDT by Gerson Pacheco
[2021-09-22 05:24] VITALS: BP 125/72
[2021-09-22] MEDS: PIPERACIL/TAZOBACTA 4.5/NS 100 4.5 GM/100 ML VIAL IV SCH (05:27)
[2021-09-22] MEDS: SODIUM CHLORIDE 0.9% 1000 ML 1,000 ML IV SCH (05:28)
[2021-09-22 05:52] LABS: Basophils % (Auto) 0.3 % (0.0-1.8); Hematocrit 43.8 % (35.5-45.6); Hemoglobin 14.5 gm/dl (11.8-15.2); Lymphocytes # (Auto) 0.5 K/mm3 (1.2-5.4); Lymphocytes % (Auto) 6.7 % (13.4-35.0); Mean Corpuscular HGB Conc 33 % (32-34); Mean Corpuscular Volume 79 fl (84-94); Monocytes # (Auto) 0.8 K/mm3 (0.0-0.8); Monocytes % (Auto) 11.4 % (0.0-7.3); Red Blood Count 5.53 M/mm3 (3.65-5.03); Red Cell Distribution Width 14.9 % (13.2-15.2)
[2021-09-22 05:53] LABS: Platelet Count 72 K/mm3 (140-440)
--- NOTE | 2021-09-22 07:34 | Discharge Summary ---
Providers - Providers Date of Admission: 09/20/21 21:27 Date of discharge: 09/22/21 Attending physician: CHATO CURRIE MD Primary care physician: NORBERTO HASSAN Hospitalization Reason for admission: fevers, chills Condition: Stable Hospital course: History of present illness: 62-year-old male with past medical history of hypertension, cancer was brought to the emergency room because of chills and tachycardia. Patient states that he was on his way home from a prostate biopsy that was done today. He denies any s hortness of breath or cough. Reports continued hematuria since the procedure. Patient febrile and tachycardic in triage. On arrival he is tachycardic in the 130s with low-grade fever. Labs obtained and reveal leukocytosis of 18.6. Thrombocytopenia platelets of 10,000. Lactic acid is within normal range. D-dimer 1111. CTA negative for PE. Currently unable to obtain urine sample. Will avoid straight cath due to recent procedure. Given timeline acute prostatitis is unlikely however will start on Zosyn. COVID swab pending. Hospital Course: 09/21: Improvement in plt ct. No reports of fever/chills or documented fever on vitals. Will continue IV Zosyn for empiric therapy. Continues to have hematuria and urine. s/p 1 unit platelets. Recheck CBC in AM. Plan for early d/c tomorrow. If platelet worse will consult hematology. 09/22: Cell lines improved. Sepsis appears resolved, wbc normalized, no fever. Plt stable at 72K. Will rx bactrim ds bid x 7 days (transmitted to pharmacy) for patient, OP follow up with PCP and completion of CBC in 1 week. Assessment and Plan: (1) Sepsis POA Status: Acute Plan to address problem: Admit the patient to the medical telemetry. Cardiac diet. Normal saline at the rate of 100 cc/h. Zosyn 4.5 g IV every 8 hours. We do the blood culture urine culture. We will repeat the lactic acid. Recheck CBC BMP in the morning Source likely from prostate biopsy Coverage for gram-negative rods with Zosyn (2) Hypertension Status: Acute Plan to address problem: Hydralazine 10 mg IV every 6 hours as needed. We continue the home medication (3) Postoperative fever Status: Acute Plan to address problem: Tylenol 650 mg p.o. every 6 hours as needed. Zosyn 4.8 g IV every 8 hours as needed. Blood culture urine culture (4) Thrombocytopenia Status: Acute Plan to address problem: Secondary to sepsis We are transfusing 1 unit of platelet pheresis. Recheck CBC in the morning. If needed please consult hematology in the morning (5) DVT prophylaxis Status: Acute Plan to address problem: SCD for DVT prophylaxis due to thrombocytopenia. Pepcid 20 mg p.o. twice daily for GI prophylaxis. Patient is a full code #Advance care planning Disease education conducted, care plan discussed, diagnoses discussed, prognosis discussed, patient is full code, patient acknowledges understanding and agree with care plan, +30 minutes. Disposition: HOME / SELF CARE / HOMELESS Final Discharge Diagnosis (Prints w/discharge instructions): sepsis POA, post operative fever, thrombocytopenia Time spent for discharge: 35 Core Measure Documentation - Palliative Care Palliative Care/ Comfort Measures: Not Applicable - Core Measures Any of the following diagnoses?: none Exam - Physical Exam Narrative exam: Physical Exam: VITAL SIGNS: Reviewed. GENERAL: The patient appears normally developed, Vital signs as documented. HEAD: No signs of head trauma. EYES: Pupils are equal. Extraocular motions intact. EARS: Hearing grossly intact. MOUTH: Oropharynx is normal. NECK: No adenopathy, no JVD. CHEST: Chest with clear breath sounds bilaterally. No wheezes, rales, or rhonchi. CARDIAC: Regular rate and rhythm. S1 and S2, without murmurs, gallops, or rubs. VASCULAR: No Edema. Peripheral pulses normal and equal in all extremities. ABDOMEN: Soft, non tender and non distended. No rebound or guarding, and no masses palpated. Bowel Sounds normal. MUSCULOSKELETAL: Good range of motion of all major joints. Extremities without clubbing, cyanosis or edema. NEUROLOGIC EXAM: Alert and oriented x 4. no focal sensory or strength deficits. PSYCHIATRIC: Mood normal. SKIN: detail exam as documented in skin assessment - Constitutional Vitals: Temp Pulse Resp BP Pulse Ox 100.0 F H 76 18 125/72 99 09/22/21 04:28 09/22/21 04:28 09/22/21 04:28 09/22/21 04:28 09/22/21 04:28 Plan Additional Instructions: History of present illness: 62-year-old male with past medical history of hypertension, cancer was brought to the emergency room because of chills and tachycardia. Patient states that he was on his way home from a prostate biopsy that was done today. He denies any shortness of breath or cough. Reports continued hematuria since the procedure. Patient febrile and tachycardic in triage. On arrival he is tachycardic in the 130s with low-grade fever. Labs obtained and reveal leukocytosis of 18.6. Thrombocytopenia platelets of 10,000. Lactic acid is within normal range. D-dimer 1111. CTA negative for PE. Currently unable to obtain urine sample. Will avoid straight cath due to recent procedure. Given timeline acute prostatitis is unlikely however will start on Zosyn. COVID swab pending. Hospital Course: 09/21: Improvement in plt ct. No reports of fever/chills or documented fever on vitals. Will continue IV Zosyn for empiric therapy. Continues to have hematuria and urine. s/p 1 unit platelets. Recheck CBC in AM. Plan for early d/c tomorrow. If platelet worse will consult hematology. 09/22: Cell lines improved. Sepsis appears resolved, wbc normalized, no fever. Plt stable at 72K. Will rx bactrim ds bid x 7 days (transmitted to pharmacy) for patient, OP follow up with PCP and completion of CBC in 1 week. Assessment and Plan: (1) Sepsis POA. Status: Acute. Plan to address problem: Admit the patient to the medical telemetry. Cardiac diet. Normal saline at the rate of 100 cc/h. Zosyn 4.5 g IV every 8 hours. We do the blood culture urine culture. We will repeat the lactic acid. Recheck CBC BMP in the morning. Source likely from prostate biopsy. Coverage for gram-negative rods with Zosyn. (2) Hypertension. Status: Acute. Plan to address problem: Hydralazine 10 mg IV every 6 hours as needed. We continue the home medication. (3) Postoperative fever. Status: Acute. Plan to address problem: Tylenol 650 mg p.o. every 6 hours as needed. Zosyn 4.8 g IV every 8 hours as needed. Blood culture urine culture. (4) Thrombocytopenia. Status: Acute. Plan to address problem: Secondary to sepsis. We are transfusing 1 unit of platelet pheresis. Recheck CBC in the morning. If needed please consult hematology in the morning. (5) DVT prophylaxis. Status: Acute. Plan to address problem: SCD for DVT prophylaxis due to thrombocytopenia. Pepcid 20 mg p.o. twice daily for GI prophylaxis. Patient is a full code. #Advance care planning. Disease education conducted, care plan discussed, diagnoses discussed, prognosis discussed, patient is full code, patient acknowledges understanding and agree with care plan, +30 minutes. Follow up with: NORBERTO HASSAN MD [Primary Care Provider] - 7 Days Prescriptions: Sulfamethoxazole/Trimethoprim [Bactrim DS TAB] 1 each PO BID 7 Days #14 tab
[2021-09-22] MEDS: FAMOTIDINE 20 MG TAB PO SCH (09:39)
== END 2021-09-22 12:13 | disposition home or self-care (01) | DRG 872 ==
LOC: ED 15:49 → 3A 21:27
PROVIDERS: ADMIT Hospitalist; ATTEND Internal Medicine
PROC: 30233R1 Transfusion of Nonautologous Platelets into Peripheral Vein, Percutaneous Approach (ICD-10-PCS; principal; 2021-09-21)
DX: A41.89 Other specified sepsis (principal); D69.6 Thrombocytopenia, unspecified; R50.82 Postprocedural fever; I10 Essential (primary) hypertension
CPT/HCPCS: 36415; 71045; 71275; 80048; 80053; 81001; 82140; 82962; 84484; 85007; 85025; 85379; 86900; 86901; 87040; 87086; 93005; 94640; G0378; J2543; J7030; J7040; P9035; Q9967; U0003